=== PATIENT | female | born 1960 | race Caucasian/White ===

== ENCOUNTER → 2017-02-08 | Outpatient (CLI) | payer BC ==
--- NOTE | 2017-02-08 15:01 | MAMMOGRAPHY REPORT ---
BILATERAL DIGITAL SCREENING MAMMOGRAM TOMOSYNTHESIS WITH CAD: 02/08/2017 TECHNIQUE: Breast tomosynthesis in addition to standard 2D mammography was performed. Current study was also evaluated with a Computer Aided Detection (CAD) system. COMPARISON: Comparison is made to exams dated: 06/24/2015 mammogram, 06/18/2014 mammogram, 08/22/2012 m ammogram, 08/05/2015 mammogram - [facility], and [facility] BREAST COMPOSITION: There are scattered areas of fibroglandular density in both breasts. FINDINGS: No suspicious masses, calcifications, or areas of architectural distortion are noted in e ither breast. There has been no significant interval change compared to prior exams. A biopsy marke r clip is again noted in the left lower inner quadrant. IMPRESSION: ACR BI-RADS CATEGORY 2: BENIGN There is no mammographic evidence of malignancy. A 1 year screening mammogram is recommended. The p atient will receive written notification of the results. Approximately 10% of breast cancers are not detected with mammography. A negative mammographic repor t should not delay biopsy if a clinically suggestive mass is present. Cheli Kevin M.D. ah/:02/08/2017 13:51:06 Financial Advisor Trainee: Mariza LAMBERT(R)([place]), [facility] letter sent: Normal 1/2 BI-RADS Code: ACR BI-RADS Category 2: Benign
== END | disposition home or self-care (01) ==
LOC: C.MAMM 12:00
PROVIDERS: ATTEND Physician Assistant
DX: Z12.31 Encounter for screening mammogram for malignant neoplasm of breast (principal)

== ENCOUNTER → 2017-10-27 | Outpatient (CLI) | payer BC ==
--- NOTE | 2017-10-27 10:45 | DIAGNOSTIC IMAGING REPORT ---
RIGHT KNEE 4 VIEWS; LEFT KNEE 4 VIEWS CLINICAL HISTORY: Chronic bilateral knee pain. COMPARISON STUDY: Radiographs of the knees dated 10/23/2013. FINDINGS: An AP standing view of both knees, a tunnel view of both knees, a sunrise view of both knees, with lateral views of the right and left knee are obtained. The skeletal structures are osteopenic. No fracture is seen. Right knee: There is moderate to advanced tricompartmental degenerative joint space narrowing the right knee. This is greatest in the medial and patellofemoral compartments. There is near complete loss of the joint space in the medial compartment. No osteochondral defect is identified on the tunnel image. Small marginal osteophytes are identified and there are patellar enthesophytes. No significant joint effusion is identified. The overlying soft tissues are normal in appearance. There is atherosclerotic calcification of the popliteal artery. Left knee: There is moderate to advanced tricompartmental degenerative joint space narrowing the left knee. This is greatest in the medial and patellofemoral compartments. There is near complete loss of the joint space in the medial compartment with bony sclerosis and osteochondral regularity. No large osteochondral defect is seen. Small marginal osteophytes are identified, and there is degenerative beaking of the tibial spine as well as patellar enthesophytes. A small joint effusion is suspected. The overlying soft tissues are normal in appearance. There is atherosclerotic calcification of the popliteal artery. IMPRESSION: 1. No acute bony abnormality is identified in either knee. 2. Moderate to advanced arthritic change is seen in the knees as detailed above. This has modestly progressed from the 2013 examination. 3. Suspect a small joint effusion on the left. Electronically signed by: Ham Mccarty M.D. 10/27/2017 10:44 AM Dictated Date/Time: 10/27/2017 10:40 AM
== END | disposition home or self-care (01) ==
LOC: C.RDSM 10:00
PROVIDERS: ATTEND Physician Assistant
DX: M25.561 Pain in right knee (principal); M25.562 Pain in left knee

== ENCOUNTER → 2018-02-12 | Outpatient (CLI) | payer OTHER ==
--- NOTE | 2018-02-13 13:03 | MAMMOGRAPHY REPORT ---
BILATERAL DIGITAL SCREENING MAMMOGRAM TOMOSYNTHESIS WITH CAD: 02/12/2018 CLINICAL HISTORY: Routine screening examination. TECHNIQUE: Breast tomosynthesis in addition to standard 2D mammography was performed. Current study was also evaluated with a Computer Aided Detection (CAD) system. COMPARISON: Comparison is made to exams dated: 02/03/2016 mammogram, 08/05/2015 mammogram, 06/24/2015 ma mmogram, 07/10/2015 stereotactic biopsy, 08/22/2012 mammogram - [facility], and 011 mammogram - [facility]. BREAST COMPOSITION: There are scattered areas of fibroglandular density in both breasts. FINDINGS: There is a stable metallic biopsy marker in the lower inner quadrant of the left breast. N o suspicious mass, architectural distortion or cluster of microcalcifications is seen. IMPRESSION: ACR BI-RADS CATEGORY 1: NEGATIVE There is no mammographic evidence of malignancy. A 1 year screening mammogram is recommended. The pa tient will receive written notification of the results. Approximately 10% of breast cancers are not detected with mammography. A negative mammographic report should not delay biopsy if a clinically suggestive mass is present. Debbie Milan M.D. ay/:02/12/2018 15:13:22 Hat Lacer: Mariza LAMBERT(Marybeth)([place]), [facility] letter sent: Normal 1/2 BI-RADS Code: ACR BI-RADS Category 1: Negative
== END | disposition home or self-care (01) ==
LOC: C.MAMM 12:08
PROVIDERS: ATTEND Physician Assistant
DX: Z12.31 Encounter for screening mammogram for malignant neoplasm of breast (principal)

== ENCOUNTER → 2018-03-28 | Outpatient (CLI) | payer OTHER | END | disposition home or self-care (01) | LOC: C.PAPS 11:39 | PROVIDERS: ATTEND Obstetrics & Gynecology | DX: Z12.4 Encounter for screening for malignant neoplasm of cervix (principal) ==

== ENCOUNTER 2024-11-27 06:22 | Observation (INO) ==
--- NOTE | 2024-10-28 14:49 | PAT Medication Instructions ---
Medication Instructions Date of Service October 28, 2024 Home Medications Medication Instructions Recorded diclofenac sodium 75 mg 75 mg PO BID PRN pain #60 tabs 09/09/24 tablet,delayed release diclofenac sodium 75 mg tablet,delayed release 75 mg PO BID PRN atorvastatin 10 mg tablet 10 mg PO QAM multivitamin 1 tab PO QAM trazodone 50 mg tablet 50 mg PO HS ASK your surgeon for instructions diclofenac sodium 75 mg tablet,delayed release 75 mg PO BID PRN DO NOT take the morning of surgery multivitamin 1 tab PO QAM Take morning of surgery With a small sip of water, OTHERWISE NOTHING TO EAT OR DRINK AFTER MIDNIGHT: atorvastatin 10 mg tablet 10 mg PO QAM Take evening before surgery trazodone 50 mg tablet 50 mg PO HS Other Notes If you have any questions please call us at [phone] or [phone] or [phone] or [phone]
--- NOTE | 2024-11-04 09:02 | Anesthesiology Consultation ---
Date of Service November 04, 2024 Assessment & Plan (1) Encounter for pre-operative examination: Plan - carotid duplex scheduled 11/18/24 per [facility] EMR. - cardiology office visit 10/29/24 [facility]: "...preoperative cardiac clearance for a Left Total knee replacement on Dec 03 at [facility] with Dr. Reynoso...worsening dyspnea, weight gain and mild edema at the end of her day...EKG reviewed and demonstrates SB with no acute ST-T wave changes-Recent stress echo on chart which was negative for inducible ischemia. Normal resting echo-per Kun Criteria, patient was counseled that she would be placed at a low-intermediate risk for any adverse perioperative cardiovascular events associated with knee replacement surgery. Patient is on a good medication regimen and no other cardiac testing or interventions would further lower that risk. Patient states he understands and is accepting of that risk and wishes to proceed with surgery...Will check carotid duplex..." - Outpatient joint assessment: Patient is currently scheduled for inpatient pathway. If re-evaluated and patient/surgeon requests outpatient pathway, patient is not advised candidate for outpatient joint program from anesthesia standpoint. Chart Review Chart Review: Pending: Refer to Additional Notes / Consult section and Patient seen in Pre Admission Testing Teaching & Discussion Pre-Anesthesia Teaching/Discussion Notes: Instructed NPO after midnight before surgery, except medications with 15 cc of water. Medication instructions provided according to the PAT guidelines. History Surgery Operation Date: 12/03/24 10:50 Proposed Procedures p Left Total Knee Arthroplasty - Roberto Reynoso MD Height/Weight Height: 5 ft 4 in Weight: 76.7 kg Allergies Allergy/AdvReac Type Severity Reaction Status Date / Time No Known Drug Allergies Allergy Verified 10/28/24 13:57 zoledronic acid AdvReac Severe see notes Verified 11/04/24 09:29 Medications Home Medications Medication Instructions Recorded Confirmed Last Taken diclofenac sodium 75 mg 75 mg PO BID PRN pain #60 tabs 09/09/24 10/28/24 Unknown tablet,delayed release atorvastatin 10 mg tablet 10 mg PO QAM 09/12/24 10/28/24 Unknown multivitamin 1 tab PO QAM 10/28/24 10/28/24 Unknown trazodone 50 mg tablet 50 mg PO HS 10/28/24 10/28/24 Unknown Past Medical History Medical History Anemia Hearing deficit Hyperlipidemia Hyperparathyroidism Osteoarthritis Osteoporosis Patient denies h/o stroke, seizures, heart attack, heart failure, DM, HTN, blood clots/DVTs or blood transfusions. Exercise / Class Metabolic Activity II 4-5 Yardwork/Stairs/Walk up hill (mild shortness of breath with one flight of stairs since knee dysfunction onset several years ago-denies change or worsening-denies chest discomfort) Past Family History Family History Father Coronary heart disease Mother Osteoporosis Kidney disease Brother Gout Other No family history of adverse response to anesthesia Osteoarthritis Denies family history of Ovarian cancer Breast cancer Colorectal cancer Past Surgical History Surgical History History of biopsy 08/07/12 - endometrium (proliferative endometrium) History of breast biopsy 07/10/15 - Left breast stereotactic biopsy (benign) History of cardiac cath was having chest pain--? 1990s @ [facility]--no stents--follows with Dr. Ashford History of colonoscopy History of surgical removal of pilonidal cyst History of tonsillectomy History of tooth extraction Past Anesthesia History No Hx of Anesthesia Complications and No Family Hx of Anesthesia Complications History of PONV No Hx of PONV and No Hx of Motion Sickness Social History Smoking Status: Never smoker Do You Dip or Chew Tobacco: No Hx Alcohol Use: No Hx Substance Use: No substance use type: does not use Review of Systems Rare reflux. Patient reports sore throat for several days last week-reports resolution- feeling back to baseline. Patient denies chest pain, snoring, witnessed apneas, fever, chills, cough, wheezing, or palpitations. Physical Exam Vital Signs Vitals BP 119/78 P 53 TEMP 98.4 SP02 94% on RA RESP 18 Physical Patient resting comfortably in chair in no acute distress, alert and oriented, responding appropriately throughout visit Full cervical extension range of motion without pain TMD < 3 finger breadths Mallampati Score 2 Dentition: several crowns, denies chipped or loose teeth, caps, implants or bridges Lungs: normal respiratory effort. Good air movement, clear throughout to auscultation, no adventitious breath sounds Cardiac: regular rate and rhythm, no murmurs noted Carotid arteries: negative bruit bilat Lab Results Anesthesia Preop Results Results Anesthesia Widget: WBC 4.55 K/ul (4.8-10.8) L 11/04/24 Hgb 13.3 g/dl (12.0-16.0) 11/04/24 Hct 39.9 % (37.0-47.0) 11/04/24 Plt 215 K/uL (130-400) 11/04/24 Na 141 mmol/L (136-145) 11/04/24 K 4.8 mmol/L (3.5-5.1) 11/04/24 Cl 107 mmol/L (98-107) 11/04/24 CO2 29 mmol/L (21-32) 11/04/24 BUN 20 mg/dl (6-23) 11/04/24 Creat 0.71 mg/dl (0.6-1.2) 11/04/24 Glucose Level 93 mg/dl (70-99(Fasting)) 11/04/24 PT 10.0 Seconds (9.0-12.0) 11/04/24 PTT 25 Seconds (21-31) 11/04/24 INR 0.9 (0.9-1.1) 11/04/24 Blood Type O Positive 11/04/24 Antibody Screen NEGATIVE 11/04/24 Testing Electrocardiogram Date: 10/29/24 Sinus bradycardia, rate 50 bpm Chest X-Ray Date: 11/04/24 No acute cardiopulmonary findings. Stress Test Date: 01/30/24 Negative for inducible ischemia EF 55-59% Normal LV wall motion No significant valvular disease
--- NOTE | 2024-11-23 18:46 | History & Physical Report ---
Date of Service November 23, 2024 Assessment & Plan (1) Degenerative arthritis of knee, bilateral: 64-year-old female with advanced bilateral knee DJD. She failed conservative measures. The left knee is bothering more than the right. She is really pretty miserable at this point. She was initially considering both bilateral knee replacement but considering everything especially her father's experience we will go and proceed with 1 knee at a time. Plan: We will proceed with left knee replacement to the risks Mente this procedure explained. She understands and desires to proceed. She has been seen by her insole and outsole splitter and cleared cardiac mathew. She did I will also have a carotid duplex study which shows less than 50% occlusion. We will plan on aspirin for DVT prophylaxis. Will do her left knee. (2) Hyperlipidemia: History of Present Illness Chief Complaint: . Persistent progressive bilateral knee pain discomfort left side greater than the right. Primary Care Provider: Carrie Chow MD . The patient is a 64-year-old female had been following for bilateral knee arthritis for the past year or so. She has a long history of bilateral knee pain discomfort described to gotten worse over time. He has been through extensive conservative treatment including steroid shots and viscosupplementation. The last viscosupplementation shot did okay for the first 2 and then since the third shot she has been pretty miserable with particular respect to the left knee worse than the right. She is having trouble even getting around and walking. She like to have a left knee replacement. She was initially considering bilateral knee replacements. She has a father who had knee replacement surgery and had problems with infection. She is concerned about this and anxious about it. He also apparently had some cardiac issues postop. I believe he had both his knees done at the same time. Allergies Allergy/AdvReac Type Severity Reaction Status Date / Time No Known Drug Allergies Allergy Verified 10/28/24 13:57 zoledronic acid AdvReac Severe see notes Verified 11/04/24 09:29 Home Medications Medication Instructions Recorded Confirmed Type diclofenac sodium 75 mg 75 mg PO BID PRN pain #60 tabs 09/09/24 10/28/24 Rx tablet,delayed release atorvastatin 10 mg tablet 10 mg PO QAM 09/12/24 10/28/24 History multivitamin 1 tab PO QAM 10/28/24 10/28/24 History trazodone 50 mg tablet 50 mg PO HS 10/28/24 10/28/24 History Past Med/Surg History Problem List Encounter for pre-operative examination Osteoporosis Degenerative arthritis of knee, bilateral Leiomyoma of uterus (Acute) Medical History Osteoarthritis Osteoporosis Anemia Hyperparathyroidism Hearing deficit Hyperlipidemia Surgical History History of surgical removal of pilonidal cyst History of colonoscopy History of cardiac cath was having chest pain--? 1990s @ [facility]--no stents--follows with Dr. Ashford History of biopsy 08/07/12 - endometrium (proliferative endometrium) History of tonsillectomy History of tooth extraction History of breast biopsy 07/10/15 - Left breast stereotactic biopsy (benign) Family History Father Coronary heart disease Mother Osteoporosis Kidney disease Brother Gout Other No family history of adverse response to anesthesia Osteoarthritis Denies family history of Ovarian cancer Breast cancer Colorectal cancer Social History Smoking Status: Never smoker Second Hand Exposure: No; Do You Dip or Chew Tobacco: No; Hx Alcohol Use: No Hx Substance Use: No Preferred Language: Romanian Communication Ability: Effective Meat Market Manager Required: No Beliefs That Will Affect Care: None marital status: Current Living Situation: Spouse Feels Safe at Home: Yes Dental Care, Regularly: Yes Physical Activity Frequency: Does not Exercise Seatbelt Use: always Sunscreen Use: Yes Assistive Devices: Hearing Aid - Bilateral Review of Systems All systems reviewed & are unremarkable except as noted in HPI & below. Physical Exam . Physical exam shows a pleasant middle-age female but looks in good health. She ambulates with a significant waddling and antalgic gait. Examination left knee reveals varus alignment to her knee. Small to moderate-sized knee effusion. She has about a 10 to 15 degree flexion contracture only bends about 110 degrees. Knee is pretty stiff. No particular pain with hip motion. No warmth. Examination of the right knee reveals a similar varus deformity. Flexion contracture about 10 degrees in bed at about 115. Moderate small to moderate- sized effusion. No pain with hip motion. She is neurologically intact. Constitutional WD/WN, vitals as above Neck trachea midline, no thyromegaly Respiratory normal respiratory effort, lungs clear to auscultation Cardiovascular RRR, no murmur, no edema Gastrointestinal (Abdomen) normal bowel sounds, soft, nontender, no hepatosplenomegaly Results & Data Results & Data Laboratory Results . We did get some laboratory results to rule out infection. Her white blood cell count is actually 4.55 which is a little bit low. Hemoglobin hematocrit are normal. Sed rate is normal and CRP is normal. Her right knee was aspirated. It shows very few polys. We send off for crystal analysis and the Lyme testing which was all negative. Diagnostic Findings . X-rays of both knees show advanced bilateral knee arthritis. She got complete loss of medial joint space in both knees to the left knee is a bit worse than the right. PG Care Time/CCT Total # of Minutes Spent Total Time Spent with Patient: Total time spent is greater than 50% in coordination of care (as documented) at patient's floor/unit and/or counseling patient: Coding Level of Care Code None Diagnoses Degenerative arthritis of knee, bilateral M17.0 Hyperlipidemia E78.5
[2024-11-27] MEDS ORDERED: BUPIVACAINE 0.5 % 5 MG/1 ML PF 10ML VIAL ONE (06:26)
[2024-11-27] MEDS ORDERED: BUPIVACAINE 0.25% PF 30 ML VIAL ONE (06:26)
[2024-11-27] MEDS: LR 500ML BOLUS, THEN 15ML/HR IV SCH (06:50)
--- NOTE | 2024-11-27 06:55 | History & Physical Bridge Note ---
Date of Service November 27, 2024 History & Physical Bridge Note I have examined the patient, reviewed the History & Physical and in the interval since the performance of the History & Physical I have noted the following changes of clinical significance: no changes noted
[2024-11-27] MEDS ORDERED: MIDAZOLAM HCL 1 MG/ML 2ML VIAL ONE ×2 (07:18→08:35)
[2024-11-27] MEDS ORDERED: fentaNYL citrate PF 100 MCG/2 ML VIAL ONE (07:27)
[2024-11-27] MEDS: LR 60ML/HR IV SCH (07:29)
[2024-11-27] MEDS: METOCLOPRAMIDE HCL 10 MG TABLET PO SCH (07:30)
[2024-11-27] MEDS: FAMOTIDINE 20 MG TAB PO SCH (07:30)
[2024-11-27] MEDS: ACETAMINOPHEN 500 MG TAB PO SCH ×2 (07:30→14:14)
[2024-11-27] MEDS: CeleBREX 200 MG CAP PO SCH (07:30)
[2024-11-27] MEDS: dexAMETHasone**PF** 10 MG/ML VIAL IV SCH (07:30)
[2024-11-27] MEDS ORDERED: ATROPINE SULFATE 0.1 MG/ML 10ML SYR IV PRN (07:50)
[2024-11-27] MEDS ORDERED: fentaNYL citrate PF 100 MCG/2 ML VIAL IV PRN (07:50)
[2024-11-27] MEDS ORDERED: ONDANSETRON INJ 2 MG/ML 2 ML VIAL IV PRN ×2 (07:50→13:48)
[2024-11-27] MEDS ORDERED: ePHEDrine sulfate 50 MG/ML AMP IV PRN (07:50)
[2024-11-27] MEDS: ceFAZolin 2000MG 2,000 MG/15 ML SYR IV SCH (09:17)
[2024-11-27] MEDS ORDERED: PROPOFOL IV EMULSION 10 MG/ML 20 ML VIAL IV ONE ×2 (09:44→10:29)
[2024-11-27] MEDS ORDERED: SODIUM CHLORIDE 0.9% PF INJ 10 ML VIAL ONE (09:44)
[2024-11-27] MEDS ORDERED: PHENYLEPHRINE 100MCG/ML 5ML SYR ONE (09:44)
[2024-11-27] MEDS ORDERED: ePHEDrine sulfate 50 MG/ML AMP ONE (09:44)
[2024-11-27] MEDS: ORTHO JOINT ANESTHETIC ONE (09:51)
[2024-11-27] MEDS: ROPIV 0.5% 246mg, Ketorolac 30mg, EPINEPHrine 0.5mg in NSS INFIL SCH (09:51)
[2024-11-27] MEDS: TRANEXAMIC ACID 1,000 MG **IV Intra-op IV SCH (10:12)
[2024-11-27] MEDS ORDERED: PHENYLEPHRINE HCL 10 MG/ML VIAL ONE (10:37)
[2024-11-27] MEDS ORDERED: ONDANSETRON INJ 2 MG/ML 2 ML VIAL ONE (10:38)
--- NOTE | 2024-11-27 11:19 | Operative Report ---
PG Post Operative Report Pre & Post Diagnosis Operation Date: 11/27/24 08:50 Pre-Op Diagnosis: Left Knee Osteoarthritis Post-Op Diagnosis: Left Knee Osteoarthritis I identified the patient and participated in the time-out.: Yes Procedure Operation Date: 11/27/24 08:50 Actual Procedures p Left Total Knee Arthroplasty(Left) - Roberto Reynoso MD Surgeon Robetro Reynoso MD Medical Office Secretary Mikey Mayo PA-C Estimated Blood Loss 50 Findings Consistent with Post-Op Diagnosis Operative findings were advanced left knee DJD. She had extensive grade 4 digt-tc-[id number] disease of the medial compartment. She had a large posterior femoral condyle osteophytes. Moderate-sized joint effusion. Specimens Left knee sent for pathology. Anesthesia Type Spinal MAC Complications none Disposition Accompanied Patient To Recovery: No Indications The patient is a 64-year-old female whose had a several year history of gradual progressive increasing bilateral knee pain and discomfort described to gotten worse over time. She been through extensive conservative treatment over the past several years which became less successful over time. She failed all conservative measures. X-rays show advanced bilateral knee arthritis. She elected proceed with left total knee arthroplasty. Description of Procedure Operative implants consist of: 1 Biomet Vanguard size 65 left posterior stabilized femoral component. 2. Biomet size 63 tibial tray. 3. 10 mm posterior stabilized polyethylene insert. 4. 31 x 8 all poly patella. The patient was taken to the op room, identified, and placed on the operating table in the supine position. All contact areas were appropriately padded. IV antibiotics were provided by anesthesia team. A spinal anesthetic and adductor canal block had been provided in the holding area. A Sauceda catheter was placed in a sterile fashion. The left leg was then prepped and draped in usual sterile fashion. The left leg was elevated and exsanguinated with use of an Esmarch and a turn was placed at 300 mmHg. An anterior approach to the left knee was then performed to longitudinal incision centered over the patella. Sharp dissection carried through subcutaneous tissue down the extensor mechanism. A medial parapatellar arthrotomy incision was made. Some subperiosteal dissection was carried out medially. The fat pad was resected including the patella tendon. Lateral patellofemoral ligament was released. Patella subluxated laterally. The knee was flexed. The osteophytes were taken off distal femur. The ACL and PCL were then released from the distal femur and the tibia subluxated anteriorly. The external tibial alignment jig was then placed on the anterior face the tibia and adjusted 14 mm medially. The proximal tibial cut was made r emove about 2 mm of bone Medial side. Tibia was sized to a size 63. We did have to downsize this to get appropriate rotation of the tibial tray Specular the tibial tubercle. Attention drawn the femur. The distal femur was entered with a sharp drill. Intramedullary canal was suction. A left 5 degree valgus cutting guide was placed. The distal femoral cutting block was pinned in place. This femoral cut was made take an additional 3 mm of bone off distal femur. The femur was then sized to a size 65. The AP cutting block was pinned parallel to the epicondylar axis which was 4 degrees of external rotation. The anterior cut, anterior chamfer, posterior cut, posterior chamfer cuts were made. The box cutting guide was placed and adjusted slightly lateral and the box cut was made. Knee was flexed. The remnants of the medial and lateral menisci were excised. The osteophytes taken off the posterior aspect the femur. A trial femoral component was placed. The tibial tray was pinned Lara extra rotation and the drill and stem punch were used. Defect in proximal tibia for the tibial tray. The knee was then trialed and 10 mm insert fit). I did leave her knee just a little bit on the side as she had a pretty stiff knee preoperatively. Attention drawn the patella. The patella was cleaned of all soft tissue. Patella thickness measured 20 mm in thickness was cut down to 12. Was sized to a size 31 patella. The locals were drilled for 31 patella. The specimen. Patella was placed. Knee was taken through range of motion patella tracked nicely with no thumbs test. Attention was then drawn to placing the permanent components. A double batch Palacos G cement was mixed. A Biomet Vanguard size 65 left posterior stabilized femoral component, a size 63 tibial tray, a 10 mm posterior Byce polyethylene insert, and a 31 x 8 all poly patella then cemented in place. The knee was brought out into full extension till cement hardened. Final cement check was then performed. The pericapsular tissues were injected with a total of 100 cc of Ortho mix. Patient did receive 1 g tranexamic acid. The tourniquet was then let down for final tourniquet time of 55 minutes. H emostasis assured use electrocautery. Extensor Meclomen closed with combination 1 PDS suture #1 Vicryl suture in a [id number] fashion. Extensor Meclomen checked to be intact with subcutaneous tissues then closed with 2 Dexon suture in a buried interrupted fashion skin was closed with jevon. Leg was then cleaned and dried a sterile dressing with Xeroform, four-port, sterile cast padding, Perry bandage were applied. Patient transferred to the recovery in stable condition. Patient tolerated procedure well and there are no complications. Mikey Mayo, my physician operations administrative assistant, was present for the entire procedure. His assistance was essential and required for appropriate patient positioning, prepping and draping, surgical exposure, performing the technical details of the operation, placement the implants, closure of the wound, and placement of the sterile bandage. I attest to the content of the Intraoperative Record and any orders documented therein. Any exceptions are noted below.
--- NOTE | 2024-11-27 11:31 | XRay Report ---
XR knee LT 1 or 2V routine CLINICAL HISTORY: Surgical Post Op COMPARISON: 03/26/2021 FINDINGS: Interval right knee prosthesis shows no hardware complication. There is expected soft tiss ue gas. Skin jevon are present. IMPRESSION: Unremarkable postoperative exam. ACT 112: Negative or not required by law. Electronically signed by: Eddie Mendiola M.D. 11/27/2024 11:29 AM
--- NOTE | 2024-11-27 12:09 | Anesthesiology Progress Note ---
Date of Service November 27, 2024 Anesthesia Post Procedure Vital Signs Vital Signs: Temp Pulse Pulse Resp BP Pulse Ox O2 Del Method 11/27/24 12:00 80 16 120/76 95 Room Air 11/27/24 11:50 80 18 110/64 96 Room Air 11/27/24 11:40 36.5 C 78 14 116/67 96 Room Air 11/27/24 11:30 79 16 115/72 97 Room Air 11/27/24 11:20 81 18 115/70 99 Room Air 11/27/24 11:10 85 14 115/69 100 Oxymask 11/27/24 11:03 36.5 C 86 16 129/66 99 Oxymask 11/27/24 06:59 36.8 C 82 18 141/83 H 95 Room Air O2 Flow Rate 11/27/24 12:00 11/27/24 11:50 11/27/24 11:40 11/27/24 11:30 11/27/24 11:20 11/27/24 11:10 4 11/27/24 11:03 6 11/27/24 06:59 Transfer of Care Handoff Completed per policy Notes Mental Status: alert / awake / arousable and participated in evaluation Patient Amnestic to Procedure: Yes Nausea / Vomiting: adequately controlled Pain: adequately controlled Airway Patency, RR, SpO2: stable & adequate BP & HR: stable & adequate Hydration State: stable & adequate Neuraxial Anesthesia: was administered and sensory block is resolving Anesthetic Complications: no major complications apparent and Pt Satisfied with anesthetic care
[2024-11-27] MEDS ORDERED: NALOXONE HCL 0.4 MG/1 ML VIAL/CARP IV PRN (13:48)
[2024-11-27] MEDS ORDERED: ONDANSETRON 4 MG OD TAB PO PRN (13:48)
[2024-11-27] MEDS ORDERED: bisacodyL 10 MG SUPP PR PRN (13:48)
[2024-11-27] MEDS ORDERED: HYDROmorphone INJ 0.5 MG/0.5 ML SYR IV PRN (13:48)
[2024-11-27] MEDS ORDERED: METOCLOPRAMIDE HCL INJ 5 MG/ML 2 ML VIAL IV PRN (13:48)
[2024-11-27] MEDS ORDERED: MAGNESIUM HYDROXIDE SUSP 30 ML UDC PO PRN (13:48)
[2024-11-27] MEDS ORDERED: ALUMINUM/MAGNESIUM SUSP 30 ML UDC PO PRN (13:48)
[2024-11-27] MEDS ORDERED: ACETAMINOPHEN 500 MG TAB PO SCH (14:00)
[2024-11-27] MEDS: KETOROLAC TROMETHAMINE 15 MG/ML VIAL IV SCH (14:15)
[2024-11-27] MEDS: oxyCODONE HCL IR 5 MG TAB (IMMEDIATE RELEASE) PO PRN (16:47)
[2024-11-27] MEDS: ceFAZolin 1000MG 1,000 MG/7.5 ML SYR IV SCH (17:28)
[2024-11-27] MEDS: ASCORBIC ACID 500 MG TAB PO SCH (17:28)
[2024-11-27] MEDS: TRANEXAMIC ACID / 0.7% NACL 1,000 MG/100 ML BAG IV SCH (17:28)
[2024-11-27] MEDS: DOCUSATE SODIUM 100 MG CAP PO SCH (20:55)
[2024-11-27] MEDS: traZODone HCL 50 MG TAB PO SCH (20:55)
[2024-11-27] MEDS: SENNA 8.6 MG TAB PO SCH (20:55)
[2024-11-27] MEDS ORDERED: SENNA 8.6 MG TAB PO SCH (21:00)
[2024-11-27] MEDS: ASPIRIN 81 MG ECTAB PO SCH (23:13)
[2024-11-28 02:49] VITALS: PULSE 62; O2SAT 95
--- NOTE | 2024-11-28 07:22 | Orthopedic Progress Note ---
Date of Service November 28, 2024 Assessment & Plan (1) Status post left knee replacement: Plan: 64-year-old female postop day 1 from left knee replacement doing pretty well. Pains controlled. A reasonable night. That she is neurologically intact. Hoping to go home today. Plan: 1. DVT prophylaxis including thigh-high teds, SCDs, aspirin twice a day. 2. PT/OT. Weight-bear as tolerated. Left total knee protocol. 3. Pain control. Doing okay with current pain regimen. 4. Disposition. Plan is to discharge to home with some home health after therapy this morning. Admission and Anticipated Discharge Date Admission Date: November 27, 2024 Subjective 64-year-old female postop day 1 from left knee replacement. She is doing pretty well. Pain has been controlled. She had a pretty reasonable night. No chest pain or shortness of breath. Not feeling dizzy or lightheaded. Physical Exam Physical Exam: Physical examination was a pleasant middle-age female. She is lying in bed looks pretty comfortable. Examination left leg reveals the leg to be well aligned. Dressings clean dry and intact. She can dorsiflex and plantarflex her foot appropriately. She is neurologically intact. Respiratory: normal respiratory effort, lungs clear to auscultation Cardiovascular: RRR, no murmur, no edema Gastrointestinal (Abdomen): normal bowel sounds, soft, nontender, no hepatosplenomegaly Results & Data Vital Signs (Past 12 Hours) Vital Signs Temp Pulse Resp BP Pulse Ox O2 Del Method 11/28/24 02:46 36.9 C 62 15 120/70 95 Room Air 11/27/24 23:00 36.8 C 71 18 120/69 94 Room Air Laboratory Results Labs this morning are pending.
[2024-11-28 07:23] VITALS: RESP 16; TEMP 97.9
[2024-11-28 07:33] LABS: Hematocrit (blood only) 31.4 % (37.0-47.0); Hemoglobin 10.7 g/dl (12.0-16.0); Mean Corpuscular Hemoglobin 31.4 pg (25.0-34.0); Mean Corpuscular Hgb Conc 34.1 g/dL (32.0-36.0); Mean Corpuscular Volume 92.1 fL (80.0-100.0); Mean Platelet Volume 10.1 fL (9.4-12.4); Platelet Count 196 K/uL (130-400); RDW Coefficient of Variation 12.8 % (11.5-14.5); RDW Standard Deviation 42.8 fL (36.4-46.3); Red Blood Count 3.41 M/uL (4.20-5.40); White Blood Count 8.56 K/ul (4.8-10.8)
[2024-11-28 07:46] LABS: BUN Creatinine Ratio 19.7 (10-20); Calcium 8.8 mg/dl (8.6-10.3); Potassium 3.9 mmol/L (3.5-5.1)
[2024-11-28] MEDS: dexAMETHasone 10 MG in SYRINGE 0 ML IV SCH (08:14)
[2024-11-28] MEDS: ATORVASTATIN 10 MG TAB PO SCH (08:54)
[2024-11-28] MEDS: MULTIVITAMIN TAB PO SCH (08:54)
[2024-11-28] MEDS ORDERED: NON-FORMULARY MEDICATION (Multivitamin Tablet) PO SCH (09:00)
[2024-11-28 10:42] VITALS: BP 112/72
--- NOTE | 2024-12-03 14:32 | Discharge Summary ---
Date of Service December 03, 2024 Admission HPI (Per Admitting) . The patient is a 64-year-old female had been following for bilateral knee arthritis for the past year or so. She has a long history of bilateral knee pain discomfort described to gotten worse over time. He has been through extensive conservative treatment including steroid shots and viscosupplementation. The last viscosupplementation shot did okay for the first 2 and then since the third shot she has been pretty miserable with particular respect to the left knee worse than the right. She is having trouble even getting around and walking. She like to have a left knee replacement. She was initially considering bilateral knee replacements. She has a father who had knee replacement surgery and had problems with infection. She is concerned about this and anxious about it. He also apparently had some cardiac issues postop. I believe he had both his knees done at the same time. Admission Exam (Per Admitting) . Physical exam shows a pleasant middle-age female but looks in good health. She ambulates with a significant waddling and antalgic gait. Examination left knee reveals varus alignment to her knee. Small to moderate-sized knee effusion. She has about a 10 to 15 degree flexion contracture only bends about 110 degrees. Knee is pretty stiff. No particular pain with hip motion. No warmth. Examination of the right knee reveals a similar varus deformity. Flexion contracture about 10 degrees in bed at about 115. Moderate small to moderate- sized effusion. No pain with hip motion. She is neurologically intact. Principal Diagnosis Same as "Discharge Diagnosis" noted below under Discharge Instructions. Discharge Data Procedures Performed Operation Date: 11/27/24 08:50 Actual Procedures p Left Total Knee Arthroplasty(Left) - Roberto Reynoso MD Ordered Studies 11/27/24 05:00 US - OR guided needle placemen Routine Hospital Course (1) Status post left knee replacement: This is a 64 year old patient admitted on 11/27/24 and underwent total knee arthroplasty. She tolerated the procedure well and there were no complications. Transferred to the PACU post op and later to the orthopedic floor for further care. She was given ancef for antibiotic prophylaxis. She was also given BERNIE stockings, SCDs, and aspirin for DVT prophylaxis. Hemoglobin, hematocrit, and vital signs were monitored during her hospital stay and remained stable. Did not require any blood transfusions. There were no complications during her hospital stay. By post op day #1 the patient was tolerating a regular diet, pain was reasonably controlled with oral pain medicine, and she was participating in physical therapy. On post op day #1 the patient was discharged home and set up with home health care. She was given printed discharge instructions including prescriptions for extra strength tylenol, aspirin, cefadroxil, ketorolac, zofran, oxycodone, and senokot. Continue physical therapy, weight bearing as tolerated. Continue BERNIE stockings. Follow up approximately 2 weeks post op or sooner if there are problems or concerns. Discharge Plan Discharge Items Patient Disposition: Home - Home Health Services Reason For Visit: Left Knee Osteoarthritis Discharge Diagnosis: Left Knee Replacement Activity: Per Instructions section Non-emergency contact: Surgeon Call non-emergency contact if: you have any medication questions Follow-up/Referrals: Carrie Chow MD [Primary Care Provider] - Diet: Regular Addtl Attending Provider Instructions: ACTIVITY RECOMMENDATIONS: Diet: * You may resume previous diet. Physical Therapy: * You will go to physical therapy three times each week for four to six weeks after your surgery in order to regain your knee range of motion and to retrain your knee to work properly. * It is just as important to make sure you are getting your knee perfectly straight as it is to regain your knee bend. * Taking a pain pill an hour before therapy can help you have a more productive and comfortable therapy session. Home Exercise: * You were shown a series of exercises (heel props, heel slides, etc.) in the hospital. Do these exercises three to four times each day including the exercises you were shown in physical therapy. Walking: * Get up and walk several times each day. For the first four weeks, try not to stand or walk for more than one hour at a time. If you do stand or walk for more than one hour, you will not hurt anything, but your knee and leg will likely swell. * As you feel comfortable, you may change from the walker or crutches to a cane and then to independent walking. MEDICATIONS: New Medicine: * You will likely be taking one or more of these medications: 1. Oxycodone - A quick and shorter-acting pain medication. Take one to two tablets every six hours to lessen your pain. 2. Aspirin - Thins your blood to lessen the chance of forming a blood clot. * The most common side effects of pain medicine and iron are nausea and constipation. If nausea or constipation is too much of a problem or if you have any questions about your new medicines or doses, call [facility] at . We will try to help you manage these issues. "VERY IMPORTANT TO READ AND REVIEW" Pain: * The immediate post-operative period after knee replacement surgery is often quite painful. * You are given a prescription for pain medicine. You should take it, as directed, when you need it, especially before physical therapy and before going to bed. Pain that interferes with sleep is very common and can last several months. * You will likely need pain medicine for the first four to six weeks. It will not stop all of the pain. The pain will lessen and as you feel better, you may change to milder pain medicine such as Tylenol. * The most common side effects of pain medicine are nausea and constipation, so don't take more than you need. SPECIAL CARE INSTRUCTIONS: TEDs/Elastic Stockings: * The white elastic stockings help limit swelling and prevent blood clots from forming in your legs. The more you wear them, the more they work. * Wear them for six weeks after knee replacement surgery and four weeks after partial knee replacement. Incision Site Care: * Remove dressing postoperative day 2 and then shower. Keep direct shower pressure off the incision site. * After showering, cover jevon with dry gauze and change daily or more frequently if the dressing is getting saturated with drainage. * Use the BERNIE stockings to hold dressing in place. DO NOT apply tape on the skin. * May completely stop using bandage if wound is dry and no drainage * Slovan are removed between 2 and 3 weeks post-op. If your follow-up appointment is made before 2 weeks, please have your appointment re- scheduled. It is too early to remove the jevon. Prevention of Infection: * Take antibiotics one hour before any dental cleaning, dental work, urological procedure, gastrointestinal procedure or any invasive surgery in order to prevent your new joint from getting infected. * You may get the antibiotics from the doctor performing the procedure or you may call our office at [phone] before and we will call in a prescription to the pharmacy of your choice. Things to Watch For: * Drainage from the incision site that occurs more than one week after your surgery. * Severely increased knee/leg pain or swelling. * Increased redness at the incision site. * Fever above 102 degrees Fahrenheit. * Unusual chest pain or shortness of breath. * Unusual pain or burning with urination. Call [facility] at [phone] with any of the above problems or if you have any questions about your medicines or recovery. FOLLOW UP VISIT: Make an appointment to see your doctor for approximately two weeks after surgery for a progress check and staple removal by calling the office at [phone]. Pending Studies at Discharge: No Stand-Alone Forms: My [facility], Smoking Cessation Medications and DC Order Prescriptions: Continued oxycodone 5 mg tablet 5 - 10 mg PO Q8H PRN (Reason: pain) Qty: 40 0RF Rx Instructions: Take as needed for pain ondansetron 4 mg tablet,disintegrating 4 mg PO Q8 PRN (Reason: nausea) Qty: 20 1RF Rx Instructions: Take as needed for nausea ketorolac 10 mg tablet 10 mg PO Q6 5 Days Qty: 20 0RF Rx Instructions: Take 4 times per day with food for 5 days to lessen pain and swelling. sennosides [Senokot] 8.6 mg tablet 8.6 mg PO BID 14 Days Qty: 28 0RF Rx Instructions: Take two times a day to prevent/treat constipation acetaminophen [Tylenol Extra Strength] 500 mg tablet 1,000 mg PO TID 30 Days Qty: 180 0RF Rx Instructions: Take 3 times per day to lessen pain. cefadroxil 500 mg capsule 500 mg PO BID 7 Days Qty: 14 0RF Rx Instructions: Take 1 cap twice a day to prevent infection aspirin [Ceci Low Dose Aspirin] 81 mg tablet,delayed release (DR/EC) 81 mg PO BID 45 Days Qty: 90 0RF Rx Instructions: Take to prevent blood clots. (DME) Wheeled Walker Misc See Rx Instructions .MEDSUPPLY Qty: 1 0RF Rx Instructions: As directed atorvastatin [Lipitor] 10 mg tablet 10 mg PO QAM trazodone 50 mg Tablet 50 mg PO HS multivitamin Tablet 1 tab PO QAM Discontinued diclofenac sodium 75 mg tablet,delayed release (DR/EC) 75 mg PO BID PRN (Reason: pain) Qty: 60 2RF Rx Instructions: Take with food Admission Data Admit Date/Time: 11/27/24 11:11 Attending Provider: Roberto Reynoso Admit Provider: Roberto Reynoso Primary Care Provider: Carrie Chow Other Providers: [facility],Home Health Other Interventions: Discharge Summary Assessment (RN) Last Done: 11/28/24 10:39
== END 2024-11-28 11:44 | disposition home health service (06) ==
LOC: 3N 06:22 → ASU 06:22